=== PATIENT | male | born 1975 | race Caucasian/White ===

== ENCOUNTER 2016-05-27 15:55 | Emergency (ER) | payer OTHER ==
[~2016-05-27] VITALS: Ht 175.3 cm; Wt 111.4 kg
[~2016-05-27 15:55] MED LIST: CLOTCRE17 TOP; GLUCTAB PO
[2016-05-27 15:57] VITALS: BP 172/105; PULSE 87; RESP 12; TEMP 97.5; O2SAT 98
[2016-05-27] MEDS ORDERED: DICL75TA PO (19:26)
[2016-05-27] MEDS ORDERED: KETOROLAC TROMETHAMINE 60 MG/2 ML (IM) VIAL IM ONE (19:30)
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
== END 2016-05-27 20:01 | disposition home or self-care (01) ==
LOC: NEPB 15:55
DX: S46.912A Strain of unspecified muscle, fascia and tendon at shoulder and upper arm level, left arm, initial encounter (principal); X58.XXXA Exposure to other specified factors, initial encounter
CPT/HCPCS: 96372; 99283; J1885

== ENCOUNTER 2016-07-15 19:09 | Emergency (ER) | payer MEDICAID ==
[~2016-07-15] VITALS: Ht 175.3 cm; Wt 124.0 kg
[~2016-07-15 19:09] MED LIST changes: +DICL75TA PO
[2016-07-15 19:10] VITALS: BP 136/97; PULSE 110; RESP 16; TEMP 97.8; O2SAT 96
[2016-07-15 20:51] LABS: BLOOD, URINE NEG (NEG); COMMENT (UR) CULT NOT INDICATED; CULTURE IF INDICATED CULT NOT INDICATED; GLUCOSE,URINE 1000 mg/dL (NEG); KETONE, URINE NEG (NEG); MUCUS URINE FEW /lpf (OCC); NITRITE,URINE NEG (NEG); PH, URINE 6.5 (5.0-8.5); SQUAMOUS EPITHELIAL CELL URINE <1 /hpf (0-5); URINE COLOR YELLOW (YELLW/STRAW)
[2016-07-15 20:56] LABS: AUTOMATED NEUTROPHIL # 8.3 TH/MM3 (1.8-7.7); BASOPHIL # 0.1 TH/MM3 (0-0.2); BASOPHIL % 1.1 % (0.0-2.0); EOSINOPHIL # 0.2 TH/MM3 (0-0.4); EOSINOPHIL % 1.7 % (0.0-4.0); HEMATOCRIT 43.2 % (39.0-51.0); HEMO FLAGS DIFF FINAL; LYMPH % 21.2 % (9.0-44.0); LYMPHOCYTE # 2.6 TH/MM3 (1.0-4.8); MEAN CELL VOLUME 84.8 FL (80.0-100.0); MEAN CORPUSCULAR HEMOGLOBIN 29.7 PG (27.0-34.0); MONO % 8.5 % (0.0-8.0); NEUT % 67.5 % (16.0-70.0); PLATELET COUNT 234 TH/MM3 (150-450); RED BLOOD COUNT 5.09 MIL/MM3 (4.50-5.90); RED CELL DISTRIBUTION WIDTH 14.7 % (11.6-17.2); WHITE BLOOD COUNT 12.2 TH/MM3 (4.0-11.0)
[2016-07-15 21:15] LABS: ALKALINE PHOSPHATASE 122 U/L (45-117); ALT (GPT) 72 U/L (12-78); ANION GAP 8 MEQ/L (5-15); AST (GOT) 45 U/L (15-37); BICARBONATE 28.2 MEQ/L (21.0-32.0); BLOOD UREA NITROGEN 17 MG/DL (7-18); CHLORIDE 102 MEQ/L (98-107); GLOMERULAR FILTRATION RATE 53 ML/MIN (>89); POTASSIUM 4.1 MEQ/L (3.5-5.1); SODIUM (NA) 138 MEQ/L (136-145); TOTAL BILIRUBIN ADULT 0.4 MG/DL (0.2-1.0)
[2016-07-15 21:48] VITALS: BP 142/79; PULSE 94; RESP 16; O2SAT 96
[2016-07-15] MEDS ORDERED: METF500T PO (21:48)
[2016-07-15] MEDS ORDERED: IBUPROFEN 600 MG TAB PO ONE (22:30)
--- NOTE | 2016-07-15 22:53 | PD ---
HPI Chief Complaint: Diabetic Time Seen by Provider: 22:16 Travel History International Travel<30 days: No Contact w/Intl Traveler<30days: No Traveled to known affect area: No History of Present Illness HPI 41-year-old male with history of diabetes not currently taking his diabetes medications, presents to the ER today because he has had 2 days history of 8 out of 10 lower back pain with radiation down the left flank area. He denies any nausea, vomiting, fevers, or any other symptoms. He states that he does have some discomfort with urination. He states the pain gets worse with sitting and moving. Modifying Factors: None Associated Signs & Symptoms: Lower back pains, burning on urinating Risk Factors: Diabetic, not on meds PFSH Past Medical History Diabetes: Yes Patient Takes Glucophage: Yes (2 MONTHS AGO) Diminished Hearing: No Immunizations Current: Yes Social History Alcohol Use: No Tobacco Use: No Substance Use: No Allergies-Medications (Allergen,Severity, Reaction): Coded Allergies: No Known Allergies (Unverified , 07/15/16) Reported Meds & Prescriptions Reported Meds & Active Scripts Active Metformin (Metformin HCl) 500 Mg Tab 500 Mg PO BIDPC With meals Motrin Ib (Ibuprofen) 200 Mg Tab 600 Mg PO Q6H PRN Flexeril (Cyclobenzaprine HCl) 10 Mg Tab 10 Mg PO TID Reported Metformin (Metformin HCl) 500 Mg Tab 500 Mg PO BIDPC With meals Review of Systems Except as stated in HPI: all other systems reviewed are Neg Physical Exam Narrative GENERAL: Well-nourished, well-developed middle age male patient in no acute distress at rest. SKIN: Warm and dry. HEAD: Normocephalic. EYES: No scleral icterus. No injection or drainage. NECK: Supple, trachea midline. CARDIOVASCULAR: Regular rate and rhythm without murmurs, gallops, or rubs. RESPIRATORY: Breath sounds equal bilaterally. No accessory muscle use. GASTROINTESTINAL: Abdomen soft, non-tender, nondistended. MUSCULOSKELETAL: No cyanosis, or edema. BACK: Mild left lower back tenderness without obvious deformity. No CVA tenderness. Data Data Last Documented VS Vital Signs Date Time Temp Pulse Resp B/P Pulse Ox O2 Delivery O2 Flow Rate FiO2 07/16/16 01:12 70 16 119/70 96 Room Air 07/15/16 19:10 97.8 Orders Urinalysis - C+S If Indicated (07/15/16 20:11) Complete Blood Count With Diff (07/15/16 20:11) Comprehensive Metabolic Panel (07/15/16 20:11) Ibuprofen (Motrin) (07/15/16 22:30) Ct Abd/Pel W/O Iv Contrast (07/15/16 22:16) Labs Laboratory Tests Test 07/15/16 20:23 White Blood Count 12.2 TH/MM3 Red Blood Count 5.09 MIL/MM3 Hemoglobin 15.1 GM/DL Hematocrit 43.2 % Mean Corpuscular Volume 84.8 FL Mean Corpuscular Hemoglobin 29.7 PG Mean Corpuscular Hemoglobin 35.0 % Concent Red Cell Distribution Width 14.7 % Platelet Count 234 TH/MM3 Mean Platelet Volume 8.5 FL Neutrophils (%) (Auto) 67.5 % Lymphocytes (%) (Auto) 21.2 % Monocytes (%) (Auto) 8.5 % Eosinophils (%) (Auto) 1.7 % Basophils (%) (Auto) 1.1 % Neutrophils # (Auto) 8.3 TH/MM3 Lymphocytes # (Auto) 2.6 TH/MM3 Monocytes # (Auto) 1.0 TH/MM3 Eosinophils # (Auto) 0.2 TH/MM3 Basophils # (Auto) 0.1 TH/MM3 CBC Comment DIFF FINAL Differential Comment Urine Color YELLOW Urine Turbidity CLEAR Urine pH 6.5 Urine Specific [place] 1.029 Urine Protein NEG mg/dL Urine Glucose (UA) 1000 mg/dL Urine Ketones NEG mg/dL Urine Occult Blood NEG Urine Nitrite NEG Urine Bilirubin NEG Urine Urobilinogen LESS THAN 2.0 MG/DL Urine Leukocyte Esterase NEG Urine RBC LESS THAN 1 /hpf Urine WBC LESS THAN 1 /hpf Urine Squamous Epithelial <1 /hpf Cells Urine Mucus FEW /lpf Microscopic Urinalysis Comment CULT NOT INDICATED Sodium Level 138 MEQ/L Potassium Level 4.1 MEQ/L Chloride Level 102 MEQ/L Carbon Dioxide Level 28.2 MEQ/L Anion Gap 8 MEQ/L Blood Urea Nitrogen 17 MG/DL Creatinine 1.46 MG/DL Estimat Glomerular Filtration 53 ML/MIN Rate Random Glucose 220 MG/DL Calcium Level 9.0 MG/DL Total Bilirubin 0.4 MG/DL Aspartate Amino Transf 45 U/L (AST/SGOT) Alanine Aminotransferase 72 U/L (ALT/SGPT) Alkaline Phosphatase 122 U/L Total Protein 9.6 GM/DL Albumin 3.8 GM/DL MDM Medical Decision Making Medical Screen Exam Complete: Yes Emergency Medical Condition: Yes Medical Record Reviewed: Yes Interpretation(s) Laboratory Tests Test 07/15/16 20:23 White Blood Count 12.2 TH/MM3 (4.0-11.0) Monocytes (%) (Auto) 8.5 % (0.0-8.0) Neutrophils # (Auto) 8.3 TH/MM3 (1.8-7.7) Monocytes # (Auto) 1.0 TH/MM3 (0-0.9) Urine Glucose (UA) 1000 mg/dL (NEG) Urine Mucus FEW /lpf (OCC) Creatinine 1.46 MG/DL (0.60-1.30) Estimat Glomerular Filtration 53 ML/MIN (>89) Rate Random Glucose 220 MG/DL (74-106) Aspartate Amino Transf 45 U/L (15-37) (AST/SGOT) Alkaline Phosphatase 122 U/L (45-117) Total Protein 9.6 GM/DL (6.4-8.2) Last 24 hours Impressions Abdomen/Pelvis CT 07/15/166 Signed Impressions: Service Date/Time: Friday, July 15, 2016 22:55 - CONCLUSION: 1. No renal stone or hydronephrosis. 2. 1.7 cm isodense mass at the lateral posterior right kidney. This appears solid. It further evaluated with a contrast-enhanced CT or MRI examination as an outpatient. 3. Prominent degenerative change at the right hip. Thomas Chand MD Differential Diagnosis Left lower back pains, difficulty urinatingUTI versus pyelonephritis versus renal colic versus musculoskeletal pain Narrative Course Lab work did not indicate significant UTI or other acute processes. CAT scan did not show any signs of acute processes or kidney stones. He does have a right kidney 1.7 cm mass which will need to be evaluated further with CT with contrast or MRI as an outpatient. I have notified the patient of this finding. At this point, my plan would be to release the patient would follow-up to primary care physician and we'll give him symptomatic relief or pain. Return for any worsening in pain or new symptoms as needed. The plan has been discussed with the patient and he states understanding. Communication was done via computer treatment supervisor. Diagnosis Primary Impression: Lumbago Med/Other Pt SpecificInfo: Prescription(s) given Scripts Metformin 500 Mg Muk543 Mg PO BIDPC #60 TAB Ref 0 With meals Prov:Zackary Cristina MD 07/16/16 Ibuprofen (Motrin Ib)200 Mg Tqi373 Mg PO Q6H PRN (PAIN SCALE 1 TO 10) #30 TAB Ref 0 Prov:Zackary Cristina MD 07/16/16 Cyclobenzaprine (Flexeril)10 Mg Tab10 Mg PO TID #21 TAB Ref 0 Prov:Zackary Cristina MD 07/16/16 Disposition: DISCHARGE HOME Condition: Stable Zackary Cristina MD Jul 15, 2016 22:53
--- NOTE | 2016-07-15 23:25 | RADRPT ---
EXAM DATE/TIME: 07/15/2016 22:55 [facility] COMPARISON: No previous studies available for comparison. INDICATIONS : Low back pain when urinating. ORAL CONTRAST: No oral contrast ingested. RADIATION DOSE: 29.95 CTDIvol (mGy) MEDICAL HISTORY : Diabetes mellitus type 2. SURGICAL HISTORY : None. ENCOUNTER: Initial ACUITY: 1 day PAIN SCALE: 5/10 LOCATION: Low back TECHNIQUE: Volumetric scanning of the abdomen and pelvis was performed. Using automated exposure control and ad justment of the mA and/or kV according to patient size, radiation dose was kept as low as reasonably achievable to obtain optimal diagnostic quality images. FINDINGS: LOWER LUNGS: The visualized lower lungs are clear. LIVER: Homogeneous density without lesion. There is no dilation of the biliary tree. No calcified gallston es. SPLEEN: Normal size without lesion. PANCREAS: Within normal limits. KIDNEYS: No renal stones or hydronephrosis is seen. There is a 1.7 cm isodense mass at the posterior lateral r ight mid kidney. ADRENAL GLANDS: Within normal limits. VASCULAR: There is no aortic aneurysm. BOWEL/MESENTERY: The stomach, small bowel, and colon demonstrate no acute abnormality. There is no free intraperitone al air or fluid. ABDOMINAL WALL: Within normal limits. RETROPERITONEUM: There is no lymphadenopathy. BLADDER: No wall thickening or mass. REPRODUCTIVE: Within normal limits. INGUINAL: There is no lymphadenopathy or hernia. MUSCULOSKELETAL: There is prominent degenerative change of the right hip. CONCLUSION: 1. No renal stone or hydronephrosis. 2. 1.7 cm isodense mass at the lateral posterior right kidney. This appears solid. It further evaluat ed with a contrast-enhanced CT or MRI examination as an outpatient. 3. Prominent degenerative change at the right hip. Thomas Chand MD on July 15, 2016 at 23:18 Board Certified Radiologist. This report was verified electronically.
[2016-07-16 01:12] VITALS: BP 119/70; PULSE 70; RESP 16; O2SAT 96
[2016-07-16] MEDS ORDERED: MOTR200T4 PO (01:26)
[2016-07-16] MEDS ORDERED: METF500T PO (01:26)
[2016-07-16] MEDS ORDERED: CYCL1TAB29 PO (01:26)
== END 2016-07-16 01:37 | disposition home or self-care (01) ==
LOC: NEPE 19:09
DX: M54.5 Low back pain (principal); R30.0 Dysuria; R93.421 Abnormal radiologic findings on diagnostic imaging of right kidney; E11.9 Type 2 diabetes mellitus without complications; Z79.84 Long term (current) use of oral hypoglycemic drugs
CPT/HCPCS: 74176; 80053; 81001; 85025

== ENCOUNTER 2017-06-10 13:04 | Emergency (ER) | payer MEDICAID, OTHER ==
[2017-06-10 13:04] VITALS: BP 133/89; PULSE 77; RESP 16; TEMP 97.4; O2SAT 98
[~2017-06-10 13:04] MED LIST changes: -CLOTCRE17 TOP; +CYCL10TA PO; -DICL75TA PO; -GLUCTAB PO; +METF500T PO; +MOTR200T4 PO
[2017-06-10] MEDS ORDERED: KETOROLAC TROMETHAMINE 60 MG/2 ML (IM) VIAL IM ONE (16:30)
[2017-06-10] MEDS ORDERED: ORPHENADRINE INJ 60 MG/2 ML AMP IM ONE (16:30)
--- NOTE | 2017-06-10 16:57 | RADRPT ---
EXAM DATE/TIME: 06/10/2017 16:45 [facility] COMPARISON: No previous studies available for comparison. INDICATIONS : Chest pain x 4 days. MEDICAL HISTORY : Diabetes mellitus type 2. SURGICAL HISTORY : None. ENCOUNTER: Initial ACUITY: 1 day PAIN SCORE: 7/10 LOCATION: Bilateral chest FINDINGS: A single view of the chest demonstrates the lungs to be symmetrically aerated without evidence of mas s, infiltrate or effusion. The cardiomediastinal contours are unremarkable. Osseous structures are intact. CONCLUSION: No acute disease. Parmjit Cool MD on June 10, 2017 at 16:54 Board Certified Radiologist. This report was verified electronically.
[2017-06-10] MEDS ORDERED: DICL75TA PO (17:14)
[2017-06-10] MEDS ORDERED: ROBA500T PO (17:14)
--- NOTE | 2017-06-10 17:19 | PD ---
HPI Chief Complaint: Musculoskeletal Complaint Time Seen by Provider: 16:16 Travel History International Travel<30 days: No Contact w/Intl Traveler<30days: No Traveled to known affect area: No History of Present Illness HPI 42-year-old male with a presents to the ED for evaluation of right upper back pain. Per patient has had this for about 4 days now. Per patient start on Friday an its worse with deep breaths as well as with movement. Per patient he went to work today an the pain became more significant so he was not told by his boss to come here to get checked. He denies any injuries. He states having some mild cough. Denies any urinary or bowel movement issues. No shortness of breath. Per patient the pain is more severe with movement as well as with the severe pain per patient as 8 out of 10. He has not taken anything for this. He denies any injuries. He denies remembering anything that could have caused this. Denies any prior injuries. No fractures. No recent travel. No chest pain or shortness of breath. No radiation of the pain. PFSH Past Medical History Diabetes: Yes Diminished Hearing: No Immunizations Current: Yes Social History Alcohol Use: No Tobacco Use: No Substance Use: No Allergies-Medications (Allergen,Severity, Reaction): Coded Allergies: No Known Allergies (Unverified Adverse Reaction, Unknown, 06/10/17) Reported Meds & Prescriptions Reported Meds & Active Scripts Active Robaxin (Methocarbamol) 500 Mg Tab 500 Mg PO QID Diclofenac Sodium DR (Diclofenac Sodium) 75 Mg Tabdr 75 Mg PO BID PRN Motrin Ib (Ibuprofen) 200 Mg Tab 600 Mg PO Q6H PRN Flexeril (Cyclobenzaprine HCl) 10 Mg Tab 10 Mg PO TID Reported Metformin (Metformin HCl) 500 Mg Tab 500 Mg PO BIDPC With meals Review of Systems Except as stated in HPI: all other systems reviewed are Neg Physical Exam Narrative GENERAL: SKIN: Warm and dry. HEAD: Atraumatic. Normocephalic. EYES: Pupils equal and round. No scleral icterus. No injection or drainage. ENT: No nasal bleeding or discharge. Mucous membranes pink and moist. Tongue is midline. no uvula deviation. NECK: Trachea midline. No JVD. CARDIOVASCULAR: Regular rate and rhythm. No murmurs, S3, S4. RESPIRATORY: No accessory muscle use. Clear to auscultation. Breath sounds equal bilaterally. GASTROINTESTINAL: Abdomen soft, non-tender, nondistended. Hepatic and splenic margins not palpable. MUSCULOSKELETAL: Extremities without clubbing, cyanosis, or edema. No obvious deformities. Full range of motion of the open lower extremities bilaterally. 2 + pulses bilaterally. Pain reproducible with touch on the right back with movement. Also with touch. No CVA tenderness noted. NEUROLOGICAL: Awake and alert. No obvious cranial nerve deficits. Motor grossly within normal limits. Five out of 5 muscle strength in the arms and legs. Normal speech. PSYCHIATRIC: Appropriate mood and affect; insight and judgment normal. Data Data Last Documented VS Vital Signs Date Time Temp Pulse Resp B/P (MAP) Pulse Ox O2 Delivery O2 Flow Rate FiO2 06/10/17 13:04 97.4 77 16 133/89 (104) 98 Orders Orders Chest, Single Ap (06/10/17 16:30) Orphenadrine Inj (Norflex Inj) (06/10/17 16:30) Ketorolac Inj (Toradol Inj) (06/10/17 16:30) Ed Discharge Order (06/10/17 17:14) [facility] Medical Decision Making Medical Screen Exam Complete: Yes Emergency Medical Condition: Yes Medical Record Reviewed: Yes Interpretation(s) Last Impressions Chest X-Ray 06/10/17 1630 Signed Impressions: Service Date/Time: Saturday, June 10, 2017 16:45 - CONCLUSION: No acute disease. Parmjit Cool MD Differential Diagnosis Back pain versus chronic back pain versus muscle strain versus muscle spasm versus pneumonia Narrative Course 42-year-old male presents to the ED for evaluation of right upper back pain with movement. Patient hospital examinable found to have signs in symptoms which appeared to be consistent with muscle strain. Patient denies any injury. He does do a lot of manual labor. Likely strain. Chest x-ray was not running some pneumonia. Chest x-ray negative for this. Patient wants her sure. She will given Toradol Norflex shots here IM. Patient had some improvement of his pain. Patient has given up for work. Prescriptions for Robaxin and diclofenac sodium. Told to follow with PCP. See ED if worsening symptoms. Diagnosis Primary Impression: Muscle strain Patient Instructions: General Instructions Departure Forms: Tests/Procedures, Work Release Enter return to work date: Jun 12, 2017 Additional Instructions: Take medications as prescribed. Follow-up with PCP. See ED for any worsening symptoms. Do not drink or drive while taking pain medication. Apply ice or heat as needed for pain Med/Other Pt SpecificInfo: Prescription(s) given Scripts Methocarbamol (Robaxin) 500 Mg Tab 500 MG PO QID for Muscle Spasm, #14 TAB 0 Refills Prov: Ehsan Chau MD 06/10/[address] (Diclofenac Sodium DR) 75 Mg Tabdr 75 MG PO BID Y for PAIN SCALE 1 TO 10, #20 TAB 0 Refills Prov: Ehsan Chau MD 06/10/17 Disposition: 01 DISCHARGE HOME Condition: Tejinder Russell Jun 10, 2017 17:19
== END 2017-06-10 17:32 | disposition home or self-care (01) ==
LOC: NEPA 13:04
DX: S29.012A Strain of muscle and tendon of back wall of thorax, initial encounter (principal); X58.XXXA Exposure to other specified factors, initial encounter
CPT/HCPCS: 71045; 96372; 99284; J1885; J2360

== ENCOUNTER 2017-07-15 09:12 | Emergency (ER) | payer SELFPAY ==
[2017-07-15 09:12] VITALS: BP 152/93; PULSE 87; RESP 18; TEMP 98; O2SAT 99
[~2017-07-15 09:12] MED LIST changes: +DICL75TA PO; +ROBA500T PO
--- NOTE | 2017-07-15 09:57 | PD ---
HPI Chief Complaint: Injury Time Seen by Provider: 09:52 Travel History International Travel<30 days: No Contact w/Intl Traveler<30days: No Traveled to known affect area: No History of Present Illness HPI This patient speaks Turkmen, on interpretation was via official russian language professor. 42-year-old male presents for evaluation of left foot and ankle pain. He reports that symptoms started this morning while walking at work. Pain is a throbbing pain which is constant, worse when walking, primarily found on the dorsum of the left foot. He denies any injury. He denies any strenuous activity. He denies any left calf, thigh, knee pain. He reports a history of type 2 diabetes. Denies any recent travel, recent surgery. His primary care physician is Dr. Sloan. No other complaints at this time. [facility] Past Medical History Diabetes: Yes Diminished Hearing: No Immunizations Current: Yes Social History Alcohol Use: No Tobacco Use: No Substance Use: No Allergies-Medications (Allergen,Severity, Reaction): Coded Allergies: No Known Allergies (Unverified Adverse Reaction, Unknown, 06/10/17) Reported Meds & Prescriptions Reported Meds & Active Scripts Active Robaxin (Methocarbamol) 500 Mg Tab 500 Mg PO QID Diclofenac Sodium DR (Diclofenac Sodium) 75 Mg Tabdr 75 Mg PO BID PRN Motrin Ib (Ibuprofen) 200 Mg Tab 600 Mg PO Q6H PRN Flexeril (Cyclobenzaprine HCl) 10 Mg Tab 10 Mg PO TID Reported Metformin (Metformin HCl) 500 Mg Tab 500 Mg PO BIDPC With meals Review of Systems Except as stated in HPI: all other systems reviewed are Neg Physical Exam Narrative GENERAL: Well developed well-nourished male in no acute distress SKIN: Warm and dry. There is a little bit of ecchymosis on the dorsum of the left foot. HEAD: Atraumatic. Normocephalic. EYES: Pupils equal and round. No scleral icterus. No injection or drainage. ENT: No nasal bleeding or discharge. Mucous membranes pink and moist. NECK: Trachea midline. No JVD. CARDIOVASCULAR: Regular rate and rhythm. No murmur appreciated. RESPIRATORY: No accessory muscle use. Clear to auscultation. Breath sounds equal bilaterally. GASTROINTESTINAL: Abdomen soft, non-tender, nondistended. Hepatic and splenic margins not palpable. MUSCULOSKELETAL: Skin as noted above. Generalized tenderness to palpation of the dorsum of the left foot. There is no tenderness to palpation of the plantar aspect of left foot. There is mild tenderness to palpation to the medial lateral left ankle. 2+ dorsalis pedis and posterior tibial pulses. Distal sensation is preserved. There is pain with dorsi and plantar flexion of the left ankle. Achilles tendon is intact and nontender. No lower extremity edema. NEUROLOGICAL: Awake and alert. No obvious cranial nerve deficits. Motor grossly within normal limits. Normal speech. Data Data Last Documented VS Vital Signs Date Time Temp Pulse Resp B/P (MAP) Pulse Ox O2 Delivery O2 Flow Rate FiO2 07/15/17 09:12 98.0 87 18 152/93 (112) 99 Room Air Orders Orders Ankle, Complete ([id number]) (07/15/17 ) Foot, Complete ([id number]) (07/15/17 ) Ed Discharge Order (07/15/17 10:51) Crutches (07/15/17 10:51) MDM Medical Decision Making Medical Screen Exam Complete: Yes Emergency Medical Condition: Yes Medical Record Reviewed: Yes Differential Diagnosis Left foot strain, peripheral neuropathy, intermittent claudication, stress fracture, metatarsal fracture, sprain Narrative Course 42-year-old male with left foot and ankle pain for 1 day. Examination is reassuring. He does have some ecchymosis on the dorsum of the left foot with associated tenderness to palpation. Distal pulses are excellent. There is no evidence of infectious process, DVT, arterial insufficiency. X-ray imaging was obtained revealing no acute abnormality is. I suspect the patient strained his left foot at work. He will be discharged with crutches, recommended follow-up with primary care physician in one week. Diagnosis Primary Impression: Strain of left foot Additional Instructions: Crutches as needed. Ice several times a day 20 minutes at a time. Elevate. Rest. Follow-up with primary care physician in one week. Return for any emergent medical conditions. Med/Other Pt SpecificInfo: Orthopedic Instructions Disposition: 01 DISCHARGE HOME Condition: Stable Pasquale Moncada Jul 15, 2017 09:57
--- NOTE | 2017-07-15 10:35 | RADRPT ---
EXAM DATE/TIME: 07/15/2017 10:15 [place] COMPARISON: No previous studies available for comparison. INDICATIONS : Pain in left foot and ankle today, unable to bear weight or ambulate. Denies trauma MEDICAL HISTORY : None. SURGICAL HISTORY : None. ENCOUNTER: Initial ACUITY: 1 day PAIN SCORE: 10/10 LOCATION: Left foot and ankle FINDINGS: Three view exam was performed of the left ankle. The bony structures are in normal alignment. No ev idence of fracture, dislocation, or soft tissue swelling. The ankle mortise is intact. No radiopaqu e foreign bodies are seen. Bony mineralization is normal. CONCLUSION: Negative examination. Pool Samano MD on July 15, 2017 at 10:33 Board Certified Radiologist. This report was verified electronically.
--- NOTE | 2017-07-15 10:36 | RADRPT ---
EXAM DATE/TIME: 07/15/2017 10:17 [facility] COMPARISON: No previous studies available for comparison. INDICATIONS : Pain in left foot and ankle today, unable to bear weight or ambulate. Denies trauma MEDICAL HISTORY : None. SURGICAL HISTORY : None. ENCOUNTER: Initial ACUITY: 1 day PAIN SCORE: Non-responsive. LOCATION: Left foot and ankle FINDINGS: Three view examination of the left foot demonstrates no soft tissue swelling, dislocation, or fractur e. The tarsal bones appear intact. The interphalangeal and metatarsophalangeal joints are intact. The calcaneus is intact. Bony mineralization is normal. CONCLUSION: Negative examination. Pool Samano MD on July 15, 2017 at 10:34 Board Certified Radiologist. This report was verified electronically.
== END 2017-07-15 11:04 | disposition home or self-care (01) ==
LOC: NEPK 09:12
DX: S96.912A Strain of unspecified muscle and tendon at ankle and foot level, left foot, initial encounter (principal); E11.9 Type 2 diabetes mellitus without complications; X58.XXXA Exposure to other specified factors, initial encounter; Y93.01 Activity, walking, marching and hiking; Z79.84 Long term (current) use of oral hypoglycemic drugs
CPT/HCPCS: 73610; 73630; 99283; E0113

== ENCOUNTER 2018-01-05 06:50 | Inpatient (IN) ==
[2018-01-05] MEDS: Sodium Chlor 0.9% Inj 250 ML ONE ×2 (08:06→18:26)
[2018-01-05] MEDS: ceFAZolin 2 GM Premix Inj 2 GM/100 ML BAG IV.SIG ONE ×2 (08:07→18:26)
[2018-01-05] MEDS: Dexamethasone Inj 20 MG/5 ML Vial ONE ×2 (08:07→18:26)
[2018-01-05] MEDS ORDERED: Chlorhexidine 4% Topical 120 APPLIC/120 ML Bottle TOPICAL SCH (08:30)
[2018-01-05] MEDS ORDERED: Chlorhexidine Gluconate 2% 1 Pack (2 Cloths) TOPICAL SCH (08:30)
[2018-01-05] MEDS ORDERED: Metoprolol Tartrate 25 MG Tablet PO SCH (08:30)
[2018-01-05] MEDS ORDERED: Sodium Chlor 0.9% Inj 40 ML, Bupivacaine Liposo PF 1.3% Inj 20 ML P-ARTICULR SCH ×2 (08:30)
[2018-01-05] MEDS ORDERED: HYDROmorphone PF Inj 1 MG/ML Ampul IV.PUSH PRN (08:34)
[2018-01-05] MEDS ORDERED: Post-op Orders (for Pharmacy) OTHER STA (08:34)
[2018-01-05] MEDS ORDERED: Sodium Chlor 0.9% Inj 500 ML IV.SIG SCH (09:00)
[2018-01-05] MEDS ORDERED: Tranexamic Acid Inj 3,000 MG in Sodium Chlor 0.9% Inj 100 ML P-ARTICULR SCH (09:00)
[2018-01-05] MEDS ORDERED: TRANEXAMIC ACID IV.SIG SCH (09:00)
[2018-01-05] MEDS ORDERED: SODIUM CHLOR 0.9% IV.SIG SCH (09:00)
[2018-01-05] MEDS ORDERED: ceFAZolin 2 GM/NS 100 ML IV; Q8H IV.SIG SCH ×2 (09:00)
[2018-01-05] MEDS ORDERED: Vancomycin Inj 1,000 MG in Sodium Chlor 0.9% Inj 250 ML IV.SIG SCH (09:00)
[2018-01-05] MEDS ORDERED: Phenylephrine/NS 1000 MCG/10ML Syringe IV.PUSH ONE (12:00)
[2018-01-05] MEDS ORDERED: Glycopyrrolate Inj 1 MG/5 ML Syringe IV.PUSH ONE (12:00)
[2018-01-05] MEDS ORDERED: Neostigmine Inj 5 MG/5 ML Syringe IV.PUSH ONE (12:00)
[2018-01-05] MEDS ORDERED: Ketorolac Inj 30 MG/ML (IVP) Vial IV.PUSH ONE (12:00)
[2018-01-05] MEDS ORDERED: Lidocaine PF 1% Inj 5 ML Syringe INFILTRATN ONE (12:00)
[2018-01-05] MEDS ORDERED: fentaNYL Citrate Inj 100 MCG/2 ML Ampul ONE (12:20)
[2018-01-05] MEDS ORDERED: *morphine SULFATE 4 MG/ML PERIprocedure ONLY ONE ×3 (12:32→13:08)
[2018-01-05] MEDS: Multivitamin/Minerals Therapeutic Tablet PO SCH ×2 (12:55→21:41)
[2018-01-05] MEDS: Senna/Docusate Sodium 8.6/50 MG Tablet PO SCH ×2 (12:55→21:41)
--- NOTE | 2018-01-05 13:02 | XR ---
EXAM DATE: 01/05/2018 12:57 PM EDT AGE/SEX: 42 years / Male INDICATIONS: Post op right total hip replacement. CLINICAL DATA: This is the patient's initial encounter. Patient reports that signs and symptoms have been present for 1 day and indicates a pain score of 7/10. MEDICAL/SURGICAL HISTORY: None. None. COMPARISON: No prior exams available for comparison. FINDINGS: Postoperative right total hip replacement. Normal alignment. No new fracture or dislocation. [place] laterally. CONCLUSION: Postoperative right total hip replacement. Electronically signed by: Jefe Humphrey MD 01/05/2018 1:00 PM EDT
[2018-01-05] MEDS ORDERED: Tranexamic Acid Inj 1,000 MG in Sodium Chlor 0.9% Inj 100 ML P-ARTICULR SCH (13:11)
--- NOTE | 2018-01-05 13:49 | MP ---
cc: Alexander Santana MD DATE OF OPERATION: 01/05/2018 PREOPERATIVE DIAGNOSIS: Right hip osteoarthritis. POSTOPERATIVE DIAGNOSIS: Right hip osteoarthritis. PROCEDURE PERFORMED: Right total hip arthroplasty. SURGEON: Alexander Santana MD. SKID STRAPPER: DAVON Richardson. ANESTHESIA: General. ESTIMATED BLOOD LOSS: 300 mL. COMPLICATIONS: None. IMPLANTS USED: DePuy Corail size 13 press-fit standard offset femoral stem, size 56 solid Hatfield Gription cup, +4 high offset posterior high-wall highly cross-linked polyethylene liner, size 36-mm cobalt chrome head, +15.5 neck. JUSTIFICATION: This patient is a 42-year-old male with history of severe osteoarthritis involving the right hip joint. He has severe disabling pain with standing, walking, ambulation, weightbearing activities, and severe pain at rest. He has pain that interferes with activities of daily living, and he has failed greater than 3 months of nonoperative conservative treatment to include medication therapy, injections, ambulatory assistive aids, home exercise program, activity modification, and weight loss attempts. X-ray of the right hip reveals severe osteoarthritis, [id number] joint space narrowing, subchondral sclerosis, subchondral cyst, and osteophyte formation with subluxation. The patient was counseled on risks, benefits, and alternatives to a total hip arthroplasty. The risks were discussed, which include, but are not limited to anesthesia, bleeding, infection, damage to nerves and blood vessels, pain, stiffness, fracture, dislocation, leg length discrepancy, blood clots, pulmonary embolism, and even . The patient's pain is severe, and he favored benefits over the risks and did wish to proceed with surgery. PROCEDURE IN DETAIL: Written consent was obtained. The patient was identified by name, taken to the operating room, and placed supine on the table. General anesthesia was administered, as well as 3 grams of IV Ancef and 1 gram of IV vancomycin. The patient was carefully turned to the left lateral decubitus position. A lateral arm roll was placed. All bony prominences and pressure points were well padded. The patient's neck was carefully monitored and kept neutral. The right hip and right lower extremity were prepped and draped using isopropyl alcohol, Hibiclens solution, and ChloraPrep solution. After a timeout was performed, a longitudinal incision was made over the posterolateral aspect of the right hip. The fascial layer was incised. The piriformis and the capsule were incised and tagged with #2 FiberWire suture. The osteoarthritic femoral head and neck components were dislocated. An oscillating saw was used to perform a femoral neck cut. The osteoarthritic femoral head and neck components were then removed. A tibial scalpel was used to excise the labrum. Sequential reaming began at size 49 and was carried through to size 56. Subsequently, a solid Hatfield 56-mm cup was implanted in approximately 45 degrees of abduction and 15 degrees anteversion. There was good purchase and fixation and insertion of the cup. A screw hole eliminator was placed, followed by the +4 posterior high-wall, highly cross-linked polyethylene liner. The liner was impacted in placed and tested for stability. Attention was turned to the femur where a box-cutting osteotome was used to gain entrance into the intramedullary canal appearance, followed by canal finder and lateralizing reamer sequential broaching up to size 13, followed by calcar planer. Trial head and neck combinations were evaluated and implanted with the current components. The leg achieved full extension and external rotation without evidence of anterior instability or impingement. Hip could be flexed to 90 degrees and internally rotated to 70 degrees before evidence of posterior instability. Soft tissue tension was appropriate. Surgical wound was thoroughly irrigated with sterile saline and pulse lavage antibiotic-impregnated solution. The piriformis and capsule were repaired with #2 FiberWire suture. Fascial layer was closed with #1 Vicryl suture, subcutaneous layer with 2-0 Vicryl suture. Skin was closed with Dermabond. Sterile dressing applied. The patient tolerated the procedure well with no intraoperative complications noted. Michael Valderrama, physician assistant manager trainee, certified was present during the entire procedure to include patient positioning and the procedure itself. The medical necessity of a physician assistant manager trainee was indicated in this case due to the complexity of the procedure. He assisted with appropriate manipulation of the leg and also retraction of muscles, bone, and neurovascular structures. He assisted with preparation of bone and also implantation of the prosthetic replacement. MD LAURA Bobo/addie , 11:44 AM , 11:54 AM
--- NOTE | 2018-01-05 14:38 | P.CONIM ---
History of Present Illness Requesting Physician: Alexander Santana Reason for Consult: Post- operative medical management Primary Care Provider: Edson Bautista MD Family Provider: Edson Bautista MD History of Present Illness: This is a 42 year old male patient with a past medical history which includes diabetes mellitus type 2 controlled with metformin 500 mg PO BID. Patient is here in the hospital for right hip arthroplasty with Dr. Santana. We have been consulted for assistance with medical management. Patient seen in PACU offers no complaints at this time. Patient denies SOB, chest pain , N/V/D/C, fevers or chills. Patient reports his post-op pain is tolerable. PMH: diabetes mellitus type 2 controlled with metformin 500 mg PO BID PSxH: denies prior surgeries FMH: reviewed and noncontributory Social history: Denies tobacco use Pebbles ETOH use Review of Systems All other systems reviewed negative except as stated in HPI [facility] - History History Provided By: Patient - Medical History Medical History: Medical History (Last Reviewed 01/05/18 @ 08:30 by Jolynn Man) Diabetes History of strain of back Hx of strain Pain, joint, hip, right - Surgical History Surgical History: Surgical History (Last Reviewed 01/05/18 @ 08:30 by Jolynn Man) History of open reduction and internal fixation (ORIF) procedure - Tobacco History Second Hand Smoke Exposure: No Smoking Status: Never smoker Tobacco Type: Cigarettes - Alcohol History How Often Do You Have a Drink Containing Alcohol: Never - Substance Use History Substance History: No History of Abuse - Travel History Recent Travel in the [place] Within the Last 8 Weeks: No Recent Travel Out of the Country Within the Last 8 Weeks: No Medications and Allergies Allergies Allergy/AdvReac Type Severity Reaction Status Date / Time No Known Allergies Allergy Verified 01/05/18 07:46 Home Medications Medication Instructions Recorded Confirmed Type hydrocodone-acetaminophen [Sugarcreek] 1 tab PO BID PRN 01/01/18 01/05/18 History ibuprofen [Motrin IB] 600 mg PO TID-QID PRN 01/01/18 01/05/18 History metformin 500 mg PO BID 01/01/18 01/05/18 History methocarbamol [Robaxin] 500 mg PO QID PRN 01/01/18 01/05/18 History Active Medications: Active Medications Hydrocodone Bitart/Acetaminophen ([place] 7.5/325) 1 tab PO Q4H PRN PRN Reason: PAIN LESS THAN 5 ON SCALE Last Admin: 01/05/18 14:25 Dose: 1 tab Hydrocodone Bitart/Acetaminophen (S[place]arcreek 7.5/325) 2 tab PO Q6H PRN PRN Reason: PAIN SCALE 5 TO 10 Al Hydroxide/Mg Hydroxide (Milk Of Magnroxanne Liq) 30 ml PO BID PRN PRN Reason: Mild Constipation Aspirin (Aspirin Chew) 81 mg PO BID [facility] Last Admin: 01/05/18 12:54 Dose: Not Given Chlorhexidine Gluconate (Chlorhexidine 2% Cloth) 3 pack TOPICAL PRESIDENT AND CMO [facility] Stop: 01/08/18 08:18 Chlorhexidine Gluconate (Hibiclens 4% Topical) 1 applicatio TOPICAL ONCE [facility] Stop: 01/09/18 08:29 Sodium Chloride 40 ml/ (Bupivacaine Liposome 20 ml) 0 ml P-ARTICULR ONCE [facility] Diphenhydramine HCl (Benadryl) 25 mg PO Q6H PRN PRN Reason: ITCHING Hydromorphone HCl (Dilaudid Pf Inj) 1 mg IV.PUSH Q3H PRN PRN Reason: BREAKTHROUGH PAIN Lactated Ringer's (Lr 1000 Ml Inj) 1,000 mls @ 30 mls/hr IV.SIG .Q24H [facility] Stop: 01/08/18 08:18 Last Infusion: 01/05/18 11:07 Dose: Infused Sodium Chloride (Ns Inj) 500 mls @ 30 mls/hr IV.SIG .Q10H [facility] Stop: 01/08/18 08:18 Cefazolin Sodium 2,000 mg/ (Sodium Chloride) 100 mls @ 200 mls/hr IV.SIG PRESIDENT AND CMO [facility] Stop: 01/08/18 08:59 Vancomycin HCl 1,000 mg/ (Sodium Chloride) 250 mls @ 250 mls/hr IV.SIG PRESIDENT AND CMO [facility] Stop: 01/08/18 08:59 Tranexamic Acid 3,000 mg/ (Sodium Chloride) 130 mls @ 0 mls/hr P-ARTICULR PRESIDENT AND CMO [facility] Stop: 01/08/18 08:59 Last Admin: 01/05/18 10:54 Dose: 100 mls/hr Tranexamic Acid 1,849.5 mg/ (Sodium Chloride) 118.495 mls @ 200 mls/hr IV.SIG PRESIDENT AND CMO [facility] Last Infusion: 01/05/18 10:54 Dose: Infused Cefazolin Sodium 2,000 mg/ (Sodium Chloride) 120 mls @ 240 mls/hr IV.SIG Q6H [facility] Stop: 01/06/18 02:29 Lactated Ringer's (Lr 1000 Ml Inj) 1,000 mls @ 80 mls/hr IV.CONT .[id number] [facility] Last Admin: 01/05/18 12:40 Dose: 80 mls/hr Lactulose (Lactulose Liq) 30 ml PO DAILY PRN PRN Reason: SEVERE CONSITIPATION Metformin HCl (Glucophage) 500 mg PO BID [facility] Last Admin: 01/05/18 12:55 Dose: Not Given Metoprolol Tartrate (Lopressor) 25 mg PO PRESIDENT AND CMO [facility] Stop: 01/08/18 08:18 Multivitamins/Minerals (Theragran-M) 1 tab PO BID [facility] Stop: 03/06/18 08:59 Last Admin: 01/05/18 12:55 Dose: Not Given Ondansetron HCl (Zofran Inj) 4 mg IV.PUSH Q6H PRN PRN Reason: NAUSEA OR VOMITING Povidone Iodine (Betadine 5% Antisepsis Kit) 1 applicatio EACH NARE PRESIDENT AND CMO [facility] Stop: 01/08/18 08:18 Povidone Iodine (Betadine 7.5% Scrub) 1 applicatio TOPICAL ONCE [facility] Stop: 01/09/18 08:59 Senna/Docusate Sodium (Luzma-Colace) 1 tab PO BID [facility] Last Admin: 01/05/18 12:55 Dose: Not Given Sodium Chloride (Ns Flush) 2 ml IV.FLUSH BID [facility] Last Admin: 01/05/18 12:55 Dose: Not Given Sodium Chloride (Ns Flush) 2 ml IV.FLUSH PRN PRN PRN Reason: FLUSH AFTER USING IV ACCESS Zolpidem Tartrate (Ambien) 5 mg PO HS PRN PRN Reason: INSOMNIA Exam Vital signs: Vital Signs 01/05/18 07:51 01/05/18 12:06 01/05/18 12:15 Temperature 98.3 F 97.9 F Pulse Rate 72 85 78 Respiratory Rate 16 10 L 16 Blood Pressure 134/84 122/54 L 95/55 L Pulse Oximetry 98 97 95 01/05/18 12:30 08/13/18 12:45 01/05/18 13:00 Temperature Pulse Rate 66 83 68 Respiratory Rate 14 20 14 Blood Pressure 98/56 L 112/59 L 107/57 L Pulse Oximetry 01/05/18 13:15 Temperature Pulse Rate Respiratory Rate 16 Blood Pressure Pulse Oximetry Intake & Output 01/04/18 01/05/18 01/05/18 18:59 06:59 18:59 Intake Total 1700.495 / 1700.495 Output Total 300 / 300 Balance 1400.495 / 1400.495 Weight 123.3 kg Intake: IV 1218.495 / 1218.495 LR 1000 mL Inj 1,000 ML @ 30 1000 / 1000 mls/hr IV.SIG .Q24H [facility] Rx#: [id number] Cyklokapron Inj 1,849.5 MG In 118.495 / 118.495 NS Inj 100 ML @ 200 mls/hr IV. SIG PRESIDENT AND CMO [facility] Rx#:[id number] Ancef 2 GM Premix Inj 2 gm In 100 / 100 100 ml @ 0 mls/hr IV.SIG .STK- MED ONE Rx#:[id number] Anesthesia Amount 482 / 482 Output: Estimated Blood Loss 300 / 300 Other: Weight On Admission 123.3 kg Narrative: GENERAL: This is a well-nourished, well-developed patient, in no apparent distress. CARDIOVASCULAR: Regular rate and rhythm RESPIRATORY: Clear to auscultation. Breath sounds equal bilaterally. GASTROINTESTINAL: Abdomen soft, non-tender, nondistended. Normal active bowel sounds MUSCULOSKELETAL: Extremities without clubbing, cyanosis, or edema. NEURO: Alert & Oriented x4 to person, place, time, situation. Moves all ext x4 Results - Labs Labs: Laboratory Results - last 24 hr 01/05/18 07:44 Blood Type B Positive Blood Type Recheck Required Antibody Screen Negative - Imaging Impressions Hip X-Ray 01/05/18 08:33 CONCLUSION: Postoperative right total hip replacement. Assessment and Plan - Plan This is a 42 year old male patient with a past medical history which includes diabetes mellitus type 2 controlled with metformin 500 mg PO BID. Patient is here in the hospital for right hip arthroplasty with Dr. Santana. We have been consulted for assistance with medical management. Patient seen in PACU offers no complaints at this time. Patient denies SOB, chest pain , N/V/D/C, fevers or chills. Patient reports his post-op pain is tolerable. Right hip osteoarthritis. S/P Right total hip arthroplasty 01/05/[address] Santana post-operative management per orthopedic surgery anticoagulation per orthopedic surgery DM type 2 Patient's home metformin has been resumed by orthopedic surgery recommend diabetic diet accu checks ACHS with low dose SSI coverage The exam, history, and the medical decision-making described in the above note were completed with the assistance of the mid-level provider. I reviewed and agree with the findings presented. I attest that I had a [id number] encounter with the patient on the same day, and personally performed and documented my assessment and findings in the medical record.
[2018-01-05] MEDS ORDERED: *Ondansetron Inj 4 MG/2 ML Vial PERIprocedural Use ONLY ONE (14:46)
[2018-01-05] MEDS ORDERED: Dextrose 50% in Water 50 ML Vial IV.PUSH PRN (14:49)
[2018-01-05] MEDS: ceFAZolin Inj 2,000 MG in Sodium Chlor 0.9% Inj 100 ML IV.SIG SCH ×2 (18:18→20:30)
[2018-01-05] MEDS ORDERED: ceFAZolin 2 GM Premix Inj 2 GM/50 ML PIGGYBACK IV.SIG ONE (18:18)
[2018-01-05] MEDS: Insulin NovoLIN Regular Correctional Sugar Inj SQ SCH ×2 (18:45→22:43)
[2018-01-05] MEDS ORDERED: Zolpidem Tartrate 5 MG Tablet PO PRN (21:00)
[2018-01-06] MEDS: ceFAZolin Inj 2,000 MG in Sodium Chlor 0.9% Inj 100 ML IV.SIG SCH (02:05)
[2018-01-06 05:42] LABS: Hemoglobin 11.9 gm/dL (13.0-17.0)
[2018-01-06 06:02] LABS: Calcium 8.1 mg/dL (8.5-10.1); Carbon Dioxide 24.1 meq/L (21.0-32.0); Potassium 4.2 meq/L (3.5-5.1)
--- NOTE | 2018-01-06 07:57 | P.PNOP ---
Subjective Interval history: doing well Physical Exam Vital signs: Vital Signs 01/05/18 07:51 01/05/18 12:06 01/05/18 12:15 Temperature 98.3 F 97.9 F Pulse Rate 72 85 78 Respiratory Rate 16 10 L 16 Blood Pressure 134/84 122/54 L 95/55 L Pulse Oximetry 98 97 95 01/05/18 12:30 01/05/18 12:45 01/05/18 13:00 Temperature Pulse Rate 66 83 68 Respiratory Rate 14 20 14 Blood Pressure 98/56 L 112/59 L 107/57 L Pulse Oximetry 01/05/18 13:15 01/05/18 15:00 01/05/18 16:00 Temperature Pulse Rate 62 98 H Respiratory Rate 16 12 13 Blood Pressure 89/54 L 122/57 L Pulse Oximetry 01/05/18 17:00 01/05/18 19:00 01/05/18 20:00 Temperature 97.6 F Pulse Rate 109 H 68 80 Respiratory Rate 24 14 18 Blood Pressure 105/56 L 115/71 119/76 Pulse Oximetry 96 01/05/18 23:59 01/06/18 04:00 Temperature 97.1 F L 97.3 F L Pulse Rate 95 H 97 H Respiratory Rate 18 18 Blood Pressure 111/57 L 114/62 Pulse Oximetry 97 96 Intake & Output 01/05/18 01/06/18 01/06/18 18:59 06:59 18:59 Intake Total 2560.495 / 2560.495 1720 / 1720 Output Total 875 / 875 1150 / 1150 Balance 1685.495 / 1685.495 570 / 570 Weight 123.3 kg 123.3 kg Intake: IV 1718.495 / 8753.498 8209 / 1240 NS Inj 250 ML @ 0 mls/hr .ROUTE 250 / 250 .STK-MED ONE Rx#:[id number] LR 1000 mL Inj 1,000 ML @ 80 1000 / 1000 mls/hr IV.CONT .[id number] [facility] Rx# :[id number] LR 1000 mL Inj 1,000 ML @ 30 1000 / 1000 mls/hr IV.SIG .Q24H [facility] Rx#: [id number] Cyklokapron Inj 1,849.5 MG In 118.495 / 118.495 NS Inj 100 ML @ 200 mls/hr IV. SIG MERCHANDISE APPRAISER [facility] Rx#:[id number] Ancef 2 GM Premix Inj 2 gm In 100 / 100 100 ml @ 0 mls/hr IV.SIG .STK- [facility] Rx#:[id number] Ancef Inj 2,000 MG In NS Inj 120 / 120 240 / 240 100 ML @ 240 mls/hr IV.SIG Q6H [facility] Rx#:[id number] Cyklokapron Inj 3,000 MG In NS 130 / 130 Inj 100 ML @ As Directed P- ARTICULR MERCHANDISE APPRAISER [facility] Rx#: [id number] Oral 360 / 360 480 / 480 Anesthesia Amount 482 / 482 Output: Urine 575 / 575 1150 / 1150 Estimated Blood Loss 300 / 300 Other: # Voids 1 Date of Last Bowel Movement 01/05/18 Weight On Admission 123.3 kg Narrative: in bed, nad dressing c/d/i neg van nvi Results - Labs CBC & Chem 7: 01/06/18 04:54 01/06/18 04:54 Laboratory Results - last 24 hr 01/05/18 01/05/18 01/05/18 07:44 18:43 21:41 Hgb Hct Sodium Potassium Chloride Carbon Dioxide Anion Gap BUN Creatinine Estimated GFR POC Glucose 261 H 255 H Random Glucose Calcium Blood Type B Positive Blood Type Recheck Required Antibody Screen Negative 01/06/18 01/06/18 01/06/18 04:54 04:54 07:26 Hgb 11.9 L Hct 35.0 L Sodium 139 Potassium 4.2 Chloride 105 Carbon Dioxide 24.1 Anion Gap 10 BUN 19 H Creatinine 1.11 Estimated GFR 72 L POC Glucose 218 H Random Glucose 210 H Calcium 8.1 L Blood Type Blood Type Recheck Antibody Screen - Imaging Impressions Hip X-Ray 01/05/18 08:33 CONCLUSION: Postoperative right total hip replacement. Assessment and Plan - Ortho Post Op Day # 1 - Assessment and Plan s/p R CORTES posterior approach wbat ok to maintain dressing unless saturated asa 81 d/c planning home with hhc and pt - cleared today if does well in PT f/up dr. hercules 2 weeks
--- NOTE | 2018-01-06 08:23 | P.DCO ---
- Physical Therapy Physical Therapy: Gait training, Safety evaluation Hip: Total hip, Protocol: Right, Posterior hip precautions Right Lower Extremity Weight Bearing: Weight bearing as tolerated - Nursing RN: 3 days/week x 2 weeks Nursing: Dressing changes Dressing changes: Daily dressing change - Certification Need for Home Health services: I have seen patient Ana M Fernandez on 01/06/18. My clinical findings support the need for the requested home health care services because: Need for Home Health Services: Limited ability to care for self, High risk of falls Homebound Certification: I certify that my clinical findings support that this patient is homebound because: Homebound Certification: Post-op weakness, Unsteady gait/balance
[2018-01-06] MEDS: Multivitamin/Minerals Therapeutic Tablet PO SCH (08:35)
[2018-01-06] MEDS: Senna/Docusate Sodium 8.6/50 MG Tablet PO SCH (08:36)
[2018-01-06] MEDS: Insulin NovoLIN Regular Correctional Sugar Inj SQ SCH ×3 (08:37→16:36)
[2018-01-06 12:47] VITALS: BP 143/77; PULSE 109; RESP 18; TEMP 98.5; O2SAT 97
--- NOTE | 2018-02-04 15:06 | MD ---
cc: Alexander Santana MD DATE OF DISCHARGE: 01/06/2018 ADMITTING DIAGNOSIS: Severe degenerative osteoarthritis, right hip. DISCHARGE DIAGNOSIS: Severe degenerative osteoarthritis, right hip. HISTORY OF PRESENT ILLNESS: Mr. Fernandez is a 42-year-old male, who presented to the orthopedic clinic for evaluation by Dr. Alexander Santana regarding progressive right hip pain. The patient states pain has been present for several years and is currently inhibiting his ability to ambulate safely and even work. He states there is a severe aching sensation, aggravated with weightbearing activities. He has no alleviating factors, although in the past, he has tried medications, assistive devices, physical therapy, home exercise program, weight loss attempts without relief of symptoms. He does have x-ray evidence of severe degenerative osteoarthritis of the right hip. While in the office, the patient was counseled on diagnosis and treatment options. Risks, benefits, and indications were discussed. The patient did elect to proceed with surgical intervention to include a right total hip arthroplasty. DATE OF SURGERY: 01/05/2018 SURGERY PERFORMED: Right total hip arthroplasty, posterior approach. HOSPITAL COURSE: After surgery, the patient was admitted to [facility]. He has received appropriate medical management, pain control, DVT prophylaxis, as well as physical therapy. DISCHARGE DISPOSITION: The patient has been discharged from the hospital, the patient has been cleared to go home. DISCHARGE INSTRUCTIONS: He will receive home health care and home physical therapy. The patient is in stable condition. He may weight bear as tolerated with posterior hip precautions. He has been instructed on wound care management. The patient may resume taking his pain medication and has been instructed on anticoagulation, aspirin 81 mg twice a day for 30 days. He has been provided a followup appointment in approximately 2 weeks from his date of surgery. The patient has asked appropriate questions, which have been answered. The patient has been discharged. Dictated by DAVON Ballard Alexander Santana MD JWM/rh , 02:03 PM , 02:12 PM
== END 2018-01-06 17:16 | disposition home health service (06) ==
LOC: HSDC 06:50 → HSDI 08:32 → EDSTATUS 10:00 → N06 19:48
PROVIDERS: ADMIT Orthopaedic Surgery Sports Medicine; ATTEND Orthopaedic Surgery Sports Medicine